=== PATIENT | male | born 1995 | race Caucasian/White ===

== ENCOUNTER 2020-11-04 22:14 | Emergency (ER) | payer BC ==
--- NOTE | 2020-11-04 22:58 | EDM.PDOC ---
ED HPI GENERAL MEDICAL PROBLEM - General Chief Complaint: Lower Extremity Injury/Pain Stated Complaint: LT ANKLE PAIN Time Seen by Provider: 11/04/20 22:45 Source of Information: Reports: Patient, RN Notes Reviewed History Limitations: Reports: No Limitations - History of Present Illness INITIAL COMMENTS - FREE TEXT/NARRATIVE: Patient is a 25-year-old male presenting to the emergency department with complaints of acute onset of left ankle pain. States he worked today and was on his way home from work in [place]. He fell asleep in the car and upon waking states his ankle felt stiff. When he tried to move it was quite painful. Denies any known injury. Denies any history of gout. He has taken nothing for pain thus far. Left Ankle Pain Score (Numeric/FACES): 10 - Related Data Allergies Allergy/AdvReac Type Severity Reaction Status Date / Time No Known Allergies Allergy Verified 11/04/20 22:32 Home Meds: Home Meds Naproxen [Naprosyn] 500 mg PO Q12HR 5 Days #10 tab 11/04/20 [Rx] Past Medical History - Past Health History Medical/Surgical History: Denies Medical/Surgical History - Infectious Disease History Infectious Disease History: Reports: Novel Coronavirus Social & Family History - Caffeine Use Caffeine Use: Reports: Coffee, Energy Drinks, Soda, Tea - Recreational Drug Use Recreational Drug Use: No Review of Systems - Review of Systems Review Of Systems: Comprehensive ROS is negative, except as noted in HPI. ED EXAM, GENERAL - Physical Exam Exam: See Below General Appearance: Alert, WD/WN, No Apparent Distress Respiratory/Chest: No Respiratory Distress, Lungs Clear, Normal Breath Sounds, No Accessory Muscle Use, Chest Non-Tender Cardiovascular: Normal Peripheral Pulses, Regular Rate, Rhythm, No Edema, No Gallop, No JVD, No Murmur, No Rub Extremities: Other (tenderness to palpation of the anterior and medial ankle as well as the medial aspect of the left foot. No redness, warmth, swelling, or deformity noted. CMS intact distally.) Neurological: Alert, Oriented, CN II-XII Intact, Normal Cognition, Normal Gait, Normal Reflexes, No Motor/Sensory Deficits Psychiatric: Normal Affect, Normal Mood Skin Exam: Warm, Dry, Intact, Normal Color, No Rash Course - Vital Signs Last Recorded V/S: Last Vital Signs Temp 99.0 F 11/04/20 22:32 Pulse 76 11/04/20 22:32 Resp 16 11/04/20 22:32 BP 127/80 11/04/20 22:32 Pulse Ox 96 11/04/20 22:32 - Orders/Labs/Meds Meds: Medications Discontinued Medications Generic Name Dose Route Start Last Admin Trade Name Noreen PRN Reason Stop Dose Admin Ketorolac Tromethamine 60 mg 11/04/20 23:14 11/04/20 23:25 Toradol IM 11/04/20 23:15 60 mg ONETIME ONE Administration - Re-Assessments/Exams Free Text/Narrative Re-Assessment/Exam: Patient is a 25-year-old male presenting to the emergency department with complaints of acute onset of left ankle and medial foot pain. He has had no known injury. States that he fell asleep in the car on his way home from work and upon waking had some discomfort. He is unable to walk on it without pain. I have ordered an x-ray of the left ankle and foot. 11/04/20 23:12 X-ray of the ankle and foot reviewed by myself and Dr. Stoner. There is no bony abnormalities noted. Discussed differential includes gout versus ligament strain. I will give the patient an injection of Toradol this evening and sent a prescription for Naprosyn twice daily for 5 days. I will send a referral to Dr. Rondon, chemist enzymes. He will provided with crutches and advised to be weightbearing as tolerated. Discharge instructions as documented. Departure - Departure Time of Disposition: 23:14 Disposition: Home, Self-Care 01 Condition: Good Clinical Impression: Foot pain, left Ankle pain, left Qualifiers: Chronicity: acute Qualified Code(s): M25.572 - Pain in left ankle and joints of left foot - Discharge Information *PRESCRIPTION DRUG MONITORING PROGRAM REVIEWED*: No *COPY OF PRESCRIPTION DRUG MONITORING REPORT IN PATIENT ATUL: No Prescriptions: Naproxen [Naprosyn] 500 mg PO Q12HR 5 Days #10 tab Instructions: Ankle Pain, Foot Pain Referrals: Huan Rondon II, DPM [Physician] - Forms: ED Department Discharge, ED Return to Work/School Form Additional Instructions: You were seen in the emergency department today for pain to your left ankle and foot. X-rays were completed and showed no abnormalities. As we discussed, this could be caused by either ligament strain or possibly gout. You received an injection of Toradol which is an NSAID to help reduce inflammation and help with pain. A prescription for Naprosyn has been sent to clinic pharmacy. Take this medication as prescribed. Referral has been sent to Dr. Rondon, chemist enzymes. Recommend calling tomorrow to set up an appointment with him. You have been provided with crutches. He may be weightbearing as tolerated. If it hurts to walk on the foot, use the crutches. Return to ER for any new or worsening symptoms of concern. Sepsis Event Note (ED) - Evaluation Sepsis Screening Result: No Definite Risk
[2020-11-04] MEDS ORDERED: Ketorolac 60 MG/2 ML SDV IM ONE (23:14)
--- NOTE | 2020-11-05 09:20 | CR ---
Left ankle: 4 views of the left ankle were obtained. Comparison: No previous study. Very minimal spur is noted at the attachment of the Achilles tendon to the calcaneus. Ankle mortise is symmetric. No acute fracture, dislocation or other bony abnormality is appreciated. Impression: 1. Finding as noted above. 2. No acute fracture is appreciated. Diagnostic code #2
--- NOTE | 2020-11-05 09:20 | CR ---
Left foot: 3 views of the left foot were obtained. Joint spaces are preserved. Small spur is noted off the posterior calcaneus at the attachment of the Achilles tendon. No acute fracture, dislocation or other bony abnormality is appreciated. Small calcification is noted off the dorsal navicular bone which is well corticated and old. Impression: 1. Calcaneal spur as noted above. 2. No acute abnormality is otherwise seen on 3 view left foot exam. Diagnostic code #2
== END 2020-11-04 23:49 | disposition home or self-care (01) ==
LOC: JD.ED 22:14
DX: M25.572 Pain in left ankle and joints of left foot (principal)
CPT/HCPCS: 73610; 73630; 96372; 99283; J1885

== ENCOUNTER 2024-10-27 15:58 | Day surgery (SDC) | payer BC ==
[2024-10-27] MEDS: Sodium Chloride 0.9% 1,000 ML IV ONE (17:10)
[2024-10-27 17:24] LABS: BASOPHILS ABSOLUTE AUTO 0.1 K/mm3 (0.0-0.2); BASOPHILS PERCENT AUTO 0.6 % (0.0-1.0); EOSINOPHILS ABSOLUTE AUTO 0.2 K/mm3 (0.0-0.4); EOSINOPHILS PERCENT AUTO 1.4 % (0.0-6.0); HEMATOCRIT 46.3 % (42.0-52.0); HEMOGLOBIN 16.1 gm/dl (14.0-18.0); IMMATURE GRAN ABSOLUTE AUTO 0.03 K/mm3 (0.00-0.05); IMMATURE GRAN PERCENT AUTO 0.3 % (0.0-0.4); MEAN CORPUSCULAR HEMOGLOBIN 29.8 pg (28.0-32.0); MEAN CORPUSCULAR HGB CONC 34.8 g/dl (32.0-36.0); MEAN CORPUSCULAR VOLUME 85.6 fl (83.0-99.0); MEAN PLATELET VOLUME 8.5 fl (9.4-12.4); MONOCYTES ABSOLUTE AUTO 0.8 K/mm3 (0.0-0.8); MONOCYTES PERCENT AUTO 7.6 % (0.0-8.0); NEUTROPHILS PERCENT AUTO 63.1 % (41.0-71.0); PLATELET COUNT,PLT 275 K/mm3 (150-400); RED BLOOD CELL COUNT 5.41 M/mm3 (4.52-5.90)
[2024-10-27 17:28] LABS: APPEARANCE,URINE CLEAR (Clear); BILIRUBIN,URINE NEGATIVE (Negative); COLOR,URINE YELLOW (Yellow); GLUCOSE,URINE NEGATIVE (Negative); KETONES,URINE NEGATIVE (Negative); LEUKOCYTE ESTERASE,URINE NEGATIVE (Negative); NITRITE,URINE NEGATIVE (Negative); OCCULT BLOOD,URINE NEGATIVE (Negative); PH,URINE 5.5 (5.0-8.0); PROTEIN,URINE TRACE (Negative); UROBILINOGEN,URINE 0.2 (0.2-1.0)
[2024-10-27 17:34] LABS: BACTERIA,URINE OCCASIONAL /hpf (FEW); MUCUS,URINE MODERATE /hpf (FEW); RBC,URINE 0-5 /hpf (0-5); SQUAMOUS EPITHELIAL CELLS,UR 0-5 /hpf (0-5); WBC,URINE 0-5 /hpf (0-5)
[2024-10-27] MEDS: Sodium Chloride 0.9% 10 ML Syringe FLUSH ONE (17:52)
[2024-10-27 17:55] LABS: A/G RATIO 1.1 (1-2); ALBUMIN 3.8 g/dl (3.4-5.0); ANION GAP 10.6 (5-15); BILIRUBIN TOTAL 0.7 mg/dL (0.2-1.0); BUN/CREATININE RATIO 11.7 (14-18); CALCIUM 8.5 mg/dL (8.5-10.1); CREATININE 1.2 mg/dL (0.7-1.3); EST CRCL DRUG DOSING (CG) 101.72 mL/min; POTASSIUM,K 3.6 mEq/L (3.5-5.1); PROTEIN TOTAL,TP 7.3 g/dl (6.4-8.2)
[2024-10-27] MEDS ORDERED: Ondansetron 4 MG/2 ML SDV ONE (18:23)
[2024-10-27] MEDS ORDERED: Succinylcholine 200 MG/10 ML MDV ONE (18:23)
[2024-10-27] MEDS ORDERED: dexmedeTOMIDine HCl 200 MCG/2 ML SDV ONE (18:23)
[2024-10-27] MEDS ORDERED: Propofol 200 MG/20 ML SDV ONE (18:23)
[2024-10-27] MEDS ORDERED: fentaNYL 100 MCG/2 ML SDV ONE (18:23)
[2024-10-27] MEDS ORDERED: Lidocaine 2% 5 ML SDV ONE (18:23)
[2024-10-27] MEDS ORDERED: Dexamethasone 4 MG/ML 5 ML MDV ONE (18:23)
[2024-10-27] MEDS ORDERED: Ketorolac 30 MG/ML SDV ONE (18:23)
[2024-10-27] MEDS ORDERED: Metoclopramide 10 MG/2 ML SDV ONE (18:29)
[2024-10-27] MEDS: Sodium Chloride 0.9% 1,000 ML IV SCH (18:33)
[2024-10-27] MEDS: Piperacillin/Tazobactam 4.5 GM in Sodium Chloride 0.9% 100 ML IV ONE (18:35)
[2024-10-27] MEDS ORDERED: Sugammadex Sodium 200 MG/2 ML VIAL IV ONE ×2 (18:52→20:19)
[2024-10-27] MEDS ORDERED: Lactated Ringers 1,000 ML IV SCH (19:30)
[2024-10-27] MEDS ORDERED: ePHEDrine 50 MG/ML SDV ONE (19:36)
[2024-10-27] MEDS ORDERED: Glycopyrrolate 0.2 MG/ML 2 ML SDV ONE (19:40)
[2024-10-27] MEDS ORDERED: Rocuronium 50 MG/5 ML Vial ONE (20:02)
[2024-10-27] MEDS: Famotidine 20 MG/2 ML SDV IVPUSH ONE (20:15)
[2024-10-27] MEDS ORDERED: HYDROmorphone 0.5 MG/0.5 ML Syringe IVPUSH PRN (20:43)
[2024-10-27] MEDS ORDERED: fentaNYL 100 MCG/2 ML SDV IVPUSH PRN (20:43)
[2024-10-27] MEDS ORDERED: Ondansetron 4 MG/2 ML SDV IVPUSH PRN (20:43)
[2024-10-27] MEDS: EPINEPHrine 1 MG/ML SDV ONE (20:52)
[2024-10-27] MEDS: Lidocaine 1% 30 ML SDV ONE (20:52)
[2024-10-27] MEDS: Bupivacaine 0.5% 30 ML SDV ONE (20:52)
[2024-10-27] MEDS ORDERED: Acetaminophen/oxyCODONE 325-5 MG Tab PO PRN (22:08)
== END 2024-10-28 00:10 | disposition home or self-care (01) ==
LOC: JD.ED 15:58 → JD.SDS 19:55
PROVIDERS: ATTEND Surgery
DX: K35.30 Acute appendicitis with localized peritonitis, without perforation or gangrene (principal); F17.210 Nicotine dependence, cigarettes, uncomplicated
CPT/HCPCS: 36415; 44970; 74177; 80053; 81001; 83690; 85025; J0171; J0330; J0665; J1100; J1885; J2405; J2543; J2704; J2765; J3010; J3490; J7030